=== PATIENT | male | born 1950 | race Caucasian/White ===

== ENCOUNTER 2019-07-07 09:49 | Emergency (ER) | payer OTHER, SELFPAY ==
[2019-07-07 09:53] VITALS: BP 171/94; PULSE 75; RESP 18; TEMP 36.6; O2SAT 96; BMI 28.8
[2019-07-07 10:06] VITALS: RESP 16; O2SAT 97
--- NOTE | 2019-07-07 10:28 | ED_ITS ---
HPI - Back Pain/Injury General: Chief Complaint: Back Pain/Injury Stated Complaint: BACK PAIN Time Seen by Provider: 07/07/19 09:58 Source: patient and family Mode of arrival: ambulatory Limitations: no limitations History of Present Illness: HPI Narrative: Patient is a very nice 68-year-old male who presents to ED today along with his son for complaints of lower back pain. Patient has had multiple surgeries on his back and suffers from fairly chronic back pain. Despite his pain patient does not normally take regular pain medications (apart from a muscle relaxer). Patient continues to be very active along with his son and states approximately 4 to 5 days ago he was doing a lot of outdoor yard work/working on a building and reports the next morning he had trouble getting out of bed due to increased back pain. He was subsequently seen [facility] a few days ago and given two shots that did not seem to help with his discomfort. He has contacted his neurosurgeon who is currently working on getting him an appointment (neurosurgeon is from [place]). Patient reports pain seems to radiate down into his right buttock/hip. He denies saddle anesthesia, urinary retention, or bowel incontinence. MD elicited complaint: back pain Pertinent past history: prior back pain Onset (ago): day(s) Timing: constant Severity: severe Similar Symptoms Previously: Yes Location: lumbar spine and right lower back Radiation: buttocks Exacerbating factors: movement, sitting upright, walking, coughing/sneezing and lifting Relieving factors: none Associated symptoms: Reports no associated symptoms; Deny abdominal pain, chills, dysuria, fever(s), nausea, syncope, urinary urgency or vomiting Review of Systems Const: Denies: fever or chills Card: Denies: chest pain, palpitations, irregular heart rhythm, edema, lightheadedness, syncope or pre-syncope Resp: Denies: shortness of breath, productive cough or chest congestion GI: Denies: abdominal pain, nausea or vomiting : Denies: flank pain, difficulty urinating, painful urination, urinary frequency or urinary urgency Musc: Reports: back pain; Denies: neck pain, extremity swelling, joint swelling, redness, joint warmth, muscle weakness or decrease in muscle mass Skin/Breast: Denies: rash Neuro: Denies: headache, numbness in extremities, weakness in extremities or changes in sensation PFSH ED PFSH: Social History Smoking and tobacco status: never smoked Physical Exam Const: COMMON NORMALS: no apparent distress, average body habitus, oriented x3, no limitations, healthy appearing, alert and well nourished Resp: COMMON NORMALS: normal respiratory effort and clear to auscultation bilaterally AUSCULTATION: clear to auscultation bilaterally Cardio: COMMON NORMALS: regular rate and regular rhythm RATE: regular rate RHYTHM: regular rhythm Back/Pelvis: LUMBAR SPINE/LOWER BACK: Yes straight leg raise negative bilaterally SACROILIAC JOINTS: Yes SI joint(s) abnormal (TTP over R) Extremity: COMMON NORMALS: full ROM Neuro: COMMON NORMALS: oriented x3, moves all extremities, no focal motor deficits and no sensory deficits noted SENSORIUM/ORIENTATION: Yes alert GAIT: Yes normal gait MOTOR EXAM: strength 5/5 throughout Skin: COMMON NORMALS: no rashes or lesions noted GENERAL SKIN EXAM: no rashes or lesions noted Course Vital Signs: Vital signs: Vital Signs Temperature 97.8 F 07/07/19 09:53 Pulse Rate 78 07/07/19 10:54 Respiratory Rate 16 07/07/19 10:54 Blood Pressure 171/94 07/07/19 09:53 Pulse Oximetry 97 07/07/19 10:54 MDM - Back Pain/Injury MDM Narrative: Medical decision making narrative: Patient with no acute neurological defects on his physical examination. I do not feel emergent imaging is indicated as it is unlikely to change my overall management. We will treat patient's acute flare of his pain and recommend he follow-up with PCP/neurosurgeon for further evaluation if pain persists. Discharge Plan Discharge Patient Disposition: Home, Self-Care Clinical Impression: Sacro-iliac pain Condition: Stable Prescriptions: New prednisone 10 mg tablet 10 mg PO DAILY Qty: 21 RF: 0 hydrocodone-acetaminophen 5-325 mg tablet 1 tab PO Q4H PRN (Reason: pain) Qty: 20 RF: 0 diclofenac sodium 50 mg tablet,delayed release (DR/EC) 50 mg PO Q12H PRN (Reason: pain) Qty: 20 RF: 0 Discharge Orders: Discharge Order (Routine); Ordered 07/07/19 Ordered By: Diane Beltrán Referrals: Tr Beal [Primary Care Provider] - Discharge Diet: Usual diet Discharge Activity: Increase activity as tolerated Activity Restrictions/Additional Instructions: As discussed please follow up with primary care or your neurosurgeon for further evaluation. Discharge Date/Time: 07/07/19 10:54 Coding Level of Care Code ED Incident Manager for Sanjeev Maldonado
[2019-07-07 10:37] VITALS: RESP 17; O2SAT 98
[2019-07-07] MEDS: morphine 4 mg/mL SDV 1 mL IM (10:37)
[2019-07-07] MEDS: orphenadrine 30 mg/mL Inj 2 mL 60 MG IM (10:37)
[2019-07-07 10:54] VITALS: PULSE 78; RESP 16; O2SAT 97
== END 2019-07-07 10:54 | disposition home or self-care (01) ==
PROVIDERS: Emergency Provider Physician Assistant; Family Provider Family Medicine; PCP Family Medicine
DX: M53.3 Sacrococcygeal disorders, not elsewhere classified (principal); Z98.890 Other specified postprocedural states
CPT/HCPCS: 96372; 99281; 99283; J2270; J2360

== ENCOUNTER 2020-02-23 14:20 | Outpatient (CLI) | payer OTHER, MEDICARE, SELFPAY ==
--- NOTE | 2020-02-23 15:00 | USCV_ITS ---
Marcos Kwan Age: 69 Gender: M : 1950 Exam Date: 02/23/2020 14:37 Ordering Phys: EMILY Maza APRN Technologist: Abdoul Clancy [place] [facility] [place]IN IN LEG HISTORY: Pain in Leg with swelling PROCEDURES: Venous duplex imaging was performed in only the left lower extremity. The following venous structures were evaluated: common femoral vein, profunda vein, proximal portion of the greater saphenous vein, superficial femoral vein, and the popliteal vein. In addition, the posterior tibial and peroneal trunk were evaluated. Serial compression, augmentation maneuvers, and spectral Doppler flow evaluation were performed. FINDINGS: No DVT seen in any vessel examined CONCLUSIONS Negative left lower extremity venous Doppler ultrasound. Dr. Celeste Joseph MD (Electronically Signed) Final Date: 23 February 2020 15:36 S
== END 2020-02-23 14:21 | disposition home or self-care (01) ==
LOC: RAD 14:29
PROVIDERS: Family Provider Family Medicine; PCP Family Medicine; Visit Provider Nurse Practitioner Family
DX: M79.605 Pain in left leg (principal)
CPT/HCPCS: 73562; 93971

== ENCOUNTER → 2020-04-27 15:12 | Outpatient (BNVA) | payer OTHER, MEDICARE, SELFPAY | PROVIDERS: Family Provider Family Medicine; PCP Family Medicine; Visit Provider Nurse Practitioner Family | DX: Z20.828 Contact with and (suspected) exposure to other viral communicable diseases (principal) | CPT/HCPCS: 87635 ==

== ENCOUNTER → 2020-07-02 12:33 | Outpatient (BNVA) | payer OTHER, MEDICARE, SELFPAY | PROVIDERS: Family Provider Family Medicine; PCP Nurse Practitioner Family; Visit Provider Nurse Practitioner Family | DX: S61.411A Laceration without foreign body of right hand, initial encounter (principal); X58.XXXA Exposure to other specified factors, initial encounter | CPT/HCPCS: 73130 ==

== ENCOUNTER → 2021-03-18 10:19 | Outpatient (BNVA) | payer MEDICARE, OTHER, SELFPAY | PROVIDERS: Family Provider Family Medicine; PCP Nurse Practitioner Family; Visit Provider Family Medicine | DX: S69.92XA Unspecified injury of left wrist, hand and finger(s), initial encounter (principal); X58.XXXA Exposure to other specified factors, initial encounter | CPT/HCPCS: 73120 ==

== ENCOUNTER 2021-03-29 15:47 | Emergency (ER) | payer MEDICARE, BC, OTHER, SELFPAY ==
[2021-03-29 16:54] VITALS: BP 169/64; PULSE 81; RESP 18; TEMP 36.7; O2SAT 92; BMI 29.5
--- NOTE | 2021-03-29 17:16 | W.ED.GENADLT ---
HPI - General Adult General: Chief complaint: Extremity Injury, Lower Stated complaint: FALL FROM HORSE/HORSE ROLLED ON PT Time Seen by Provider: 03/29/21 17:06 History of Present Illness: HPI narrative: Patient is a 70-year-old male with history of hypertension, lipidemia, atrial fibrillation on Eliquis presented to the emergency room after falling off a brandon while riding a horse. Patient complains of right ankle pain, right flank pain. Patient denies LOC, or head injuries. Patient says that he is not ambulatory and has not been able to bear weight on the right ankle. EMS was alerted patient was brought in for evaluation. Patient has bruises over the right leg. Onset:1 hr ago Duration:1 hr Location:home Severity:moderate Review of Systems Narrative: Constitutional: No fever, no chills. HEENT: No vision changes CV: No chest pain, no palpitations PULM: no cough, no dyspnea. GI: No abdominal pain, no N/V/D. +R flank pain : No dysuria MSKEL: No muscle pain SKIN: No new rashes, no lesions. NEURO: No headache, no focal weakness. HEME: No visible bruises PSYCH: Normal mood PFSH ED PFSH: Medical History Acute bacterial sinusitis Arthritis CAD (coronary artery disease) DVT (deep venous thrombosis) Encounter for medication management Environmental and seasonal allergies Fatigue Hyperlipidemia Lower respiratory tract infection Prostate cancer screening Vitamin D deficiency Surgical History History of back surgery S/P appendectomy Status post arterial stent Status post right hip replacement Family History Other CAD (coronary artery disease) Hypertension Social History Smoking and tobacco status: never smoked Alcohol intake: current Alcohol intake frequency: few times a week Physical Exam Narrative: EXAM NARRATIVE: Head: Atraumatic Eyes: PERRL, conjunctiva without injection ENT: Mucous membrane moist NECK: Supple, ROM intact LUNGS: LCTAB, no crackles/rhonchi CV: RRR ABDOMEN: Soft, +R flank TTP. NO guarding rebound, guarding, rigidity. No CVA tenderness to percussion. Neg Cortés/Neg McBurney's point tenderness, no suprabupic tenderness to palpation. EXTREMITY: Normal ROM, +R ankle swelling and tenderness to palpation, +R tib/fib proximal, Rfoot tenderness to palpation, 2+ DP/PT pulses R, cap refill < 2 seconds SKIN: No rash or erythema NEURO: Awake and alert, no focal motor deficits PSYCH: Normal mood and affect Course Vital Signs: Vital signs: Vital Signs Temperature 98.2 F 03/29/21 18:39 Pulse Rate 74 03/29/21 20:43 Respiratory Rate 18 03/29/21 20:43 Blood Pressure 143/82 03/29/21 18:39 Pulse Oximetry 98 03/29/21 20:43 MDM - General Adult MDM Narrative: Medical decision making narrative: 70-year-old male with history of anticoagulation use presenting to the emergency room after an episode of fall. Patient complains of right ankle, right lateral flank pain. On exam, patient is hemodynamically stable. Primary survey is negative for any focal findings. Pelvis stable. Secondary survey significant for bruises over the right lower extremity and right ankle swelling. Neurovascular exam of the right lower extremity intact. E-Fast is negative today. Work-up including x-rays and CT scans. Intervention: morphine, TDAP Patient studies are negative today. Patient is no longer complaining of flank pain after morphine. Ankle x-ray is negative. Patient still has tenderness and swelling of the right ankle. Patient was placed in a short leg splint. Patient was given crutches. Patient is instructed follow-up repeat x-ray in 1 week. At the present time, because patient is on blood thinner, I cannot rule out the possibility of hollow viscus injury. However because patient does not have any flank pain anymore, performed a shared decision-making with patient who elects to go home at this time. Given patient strict return precautions for any signs of any flank pain, fever/chills, lightheadedness, or any new concerning complaints. Patient verbalized understanding of all the risk of leaving today including possible hemoperitenum and at this time. Jack within normal limit. UA is negative for gross hematuria. No suspicion for acute renal injury. Patient is also worried that he needs to get a repeat x-ray in 1 week to evaluate for possible occult fracture of right ankle. Patient is given crutches and short leg splint today. Rx perocet PRN pain Disposition: Discharge. Patient counseled regarding diagnostic impression, treatment plan. Patient given ED strict return precautions to return for continuation, worsening, or development of new symptoms. Instructed to f/u w/ PCP regarding symptoms today. Patient verbalized understanding. Lab Data: Labs: Lab Results 03/29/21 03/29/21 03/29/21 17:40 17:40 18:45 WBC 12.9 10^3/uL H 10 ^3/uL (4.0-10.0) RBC 4.98 10^6/uL 10^6 /uL (4.1-5.3) Hgb 15.3 g/dL g/dL (11.7-16.6) Hct 44.4 % % (42.0-52.0) MCV 89.2 fl fl (80-94) MCH 30.7 pg pg (28.0-34.0) MCHC 34.5 g/dL g/dL (30.0-36.0) RDW 12.6 % % (12.1-15.1) Plt Count 181 10^3/cmm 10^3 /cmm (130-400) MPV 8.9 fL fL (7.4-10.4) Neut % (Auto) 76.1 % % Lymph % (Auto) 13.3 % % Sutton % (Auto) 9.9 % % Eos % (Auto) 0.2 % % Baso % (Auto) 0.2 % % Neut # (Auto) 9.77 10^3/uL H 10 ^3/uL (1.8-7.7) Lymph # (Auto) 1.7 10^3/uL 10^3/ uL (0.8-4.8) Sutton # (Auto) 1.3 10^3/uL H 10^ 3/uL (0.2-0.9) Eos # (Auto) 0.0 10^3/uL 10^3/ uL (0.0-0.8) Baso # (Auto) 0.0 10^3/uL 10^3/ uL (0.0-0.1) Nucleated RBC % (a uto) 0 % % Nucleated RBCs # 0.0 /100WBC /100W BC Sodium 138 mmol/L mmol/L (136-145) Potassium 4.0 mmol/L mmol/L (3.5-5.1) Chloride 102 mmol/L mmol/L (98-107) Carbon Dioxide 27 mmol/L mmol/L (22-29) Anion Gap 13.0 (5-19) BUN 16 mg/dL mg/dL (8-23) Creatinine 0.7 mg/dL mg/dL (0.7-1.2) GFR Calculation Not Reportable Glucose 113 mg/dL mg/dL (65-115) Calculated Osmolal ity 288 mOsm/kg mOsm/ kg (285-295) Calcium 9.1 mg/dL mg/dL (8.5-10.5) Total Bilirubin 0.4 mg/dL mg/dL (0.15-1.2) AST 25 U/L U/L (0-40) ALT 21 U/L U/L (0-41) Alkaline Phosphata se 58 IU/L IU/L (40-130) Total Protein 7.2 g/dL g/dL (6.6-8.7) Albumin 4.3 g/dL g/dL (3.5-5.2) Globulin 2.9 g/dL g/dL (1.3-4.6) Lipase 19 U/L U/L (13-60) Urine Color Yellow (Yellow) Urine Appearance Clear (CLEAR) Urine pH 7 (5-7) Ur Specific Gravit y 1.015 (1.005-1.030) Urine Protein Neg (Negative) Urine Glucose (UA) Norm (Normal) Urine Ketones Negative (Negative) Urine Blood Trace H (Negative) Urine Nitrate Negative (Negative) Urine Bilirubin Neg (Negative) Urine Urobilinogen Norm mg/dL mg/dL (Negative) Ur Leukocyte Yany ase Negative (Negative) Urine RBC 15-25 /hpf H /hpf (0-2) Urine WBC 0-4 /hpf H /hpf (0-5) Ur Squamous Epith Cells 0-4 /hpf H /hpf (0-5) Amorphous Sediment Not Reportable Urine Bacteria Trace /hpf /hpf (NONE) Imaging Data^: Other Imaging: Radiologist's impression: [address] [address]BHaj ReportSigned Patient: Marcos Kwanmynor #: [id number]: 1950Acct#:[id number]/Sex: MADM Date: 03/29/21Loc: ERRoom/Bed:Attending Dr: Ordering Provider/Ordering MD: Arias Weems MD Date of Service: 03/29/21 Procedure(s): XR pelvis 1-2V* 83670 Accession Number(s): [id number] Report Number: [id number] PROCEDURE INFORMATION: Exam: XR Pelvis Exam date and time: 03/29/2021 5:25 PM Age: 70 years old Clinical indication: Injury or trauma; Blunt trauma (contusions or hematomas); Right; Pelvic region; Injury details: Horse fell on PT. Pain in RT leg and RT side of chest/abd; Prior surgery; Surgery type: Appy, back, hernia TECHNIQUE: Imaging protocol: XR pelvis. Views: 1 or 2 view. COMPARISON: No relevant prior studies available. FINDINGS: Bones/joints: Intact well aligned left hip prosthesis. No pelvic or hip fracture. Moderate lower lumbar degenerative disease. Soft tissues: Visible soft tissues are unremarkable. XR/XR pelvis 1-2V* 71283 IMPRESSION: No acute fracture. Radiation Dose CTDIVOL = (mGy): DLP = (mGy-cm) Dictated By:Galo Montero MDSigned By:Galo Montero MDSigned Date/Time:03/29/21 1824DD/ [address] [address]JNyh ReportSigned Patient: Marcos Kwan #: [id number]: 1950Acct#:[id number]/Sex: MADM Date: 03/29/21Loc: ERRoom/Bed:Attending Dr: Ordering Provider/Ordering MD: Arias Weems MD Date of Service: 03/29/21 Procedure(s): XR chest 1V portable 05724 Accession Number(s): [id number] Report Number: [id number] PROCEDURE INFORMATION: Exam: XR Chest Exam date and time: 03/29/2021 5:25 PM Age: 70 years old Clinical indication: Injury or trauma; Other: Horse fell on him; Blunt trauma (contusions or hematomas); Injury details: Horse fell on PT. Pain in RT leg and RT side of chest/abd; Prior surgery; Surgery type: Appy, back, RT hip TECHNIQUE: Imaging protocol: XR of the chest. Views: 1 view. COMPARISON: CR Chest 1 [place] [id number] 06/20/2016 2:21 PM FINDINGS: Lungs: Lungs are clear. Pleural spaces: There is no pleural effusion or pneumothorax. Heart/Mediastinum: Cardiomediastinal contours are unremarkable. Bones/joints: Bones are unremarkable. XR/XR chest 1V portable [id number] IMPRESSION: No acute findings. Radiation Dose CTDIVOL = (mGy): DLP = (mGy-cm) Dictated By:Galo Montero MDSigned By:Galo Montero MDSigned Date/Time:03/29/21 1823DD/ [address] [address]NZzd ReportSigned Patient: Marcos Kwan #: [id number]: 1950Acct#:[id number]/Sex: 70 / MADM Date: 03/29/21Loc: ERRoom/Bed:Attending Dr: Ordering Provider/Ordering MD: Arias Weems MD Date of Service: 03/29/21 Procedure(s): XR tibia fibula RT 2V 56478 Accession Number(s): [id number] Report Number: [id number] PROCEDURE INFORMATION: Exam: XR Right Tibia and Fibula Exam date and time: 03/29/2021 5:19 PM Age: 70 years old Clinical indication: Injury or trauma; Blunt trauma; Lower leg; Right; Injury details: Horse fell on PT. Pain in RT leg; Additional info: Tib/fib pain TECHNIQUE: Imaging protocol: XR Right tibia and fibula. Views: 2 views. COMPARISON: No relevant prior studies available. FINDINGS: Bones/joints: There is smooth periosteal reaction in the mid fibular shaft suggesting healed fracture. Alignment of the knee and ankle are normal. There is no acute fracture. Soft tissues: Visible soft tissues are unremarkable. XR/XR tibia fibula RT 2V 95171 IMPRESSION: No acute fracture. Radiation Dose CTDIVOL = (mGy): DLP = (mGy-cm) Dictated By:Galo Montero MDSigned By:Galo Montero MDSigned Date/Time:03/29/21/ [address] [address]IPwh ReportSigned Patient: Marcos Kwan #: [id number]: 1950Acct#:[id number]/Sex: MADM Date: 03/29/21Loc: ERRoom/Bed:Attending Dr: Ordering Provider/Ordering MD: Arias Weems MD Date of Service: 03/29/21 Procedure(s): XR knee LT 1-2V 90231 Accession Number(s): [id number] Report Number: [id number] PROCEDURE INFORMATION: Exam: XR Left Knee Exam date and time: 03/29/2021 5:19 PM Age: 70 years old Clinical indication: Injury or trauma; Other: Horse fell on PT; Blunt trauma; Knee; Left TECHNIQUE: Imaging protocol: XR Left knee. Views: 1 or 2 views. COMPARISON: No relevant prior studies available. FINDINGS: Bones/joints: Normal. Soft tissues: Normal. XR/XR knee LT 1-2V 20519 IMPRESSION: No acute findings. Radiation Dose CTDIVOL = (mGy): DLP = (mGy-cm) Dictated By:Galo Montero MDSigned By:Galo Montero MDSigned Date/Time:03/29/21/ [address] [address]ZX Scan ReportSigned Patient: Marcos Kwan #: [id number]: 1950Acct#:[id number]/Sex: MADM Date: 03/29/21Loc: ERRoom/Bed:Attending Dr: Ordering Provider/Ordering MD: Arias Weems MD Date of Service: 03/29/21 Procedure(s): CT head wo con* 48264 Accession Number(s): [id number] Report Number: [id number] PROCEDURE INFORMATION: Exam: CT Head Without Contrast Exam date and time: 03/29/2021 5:19 PM Age: 70 years old Clinical indication: Injury or trauma; Blunt trauma (contusions or hematomas); Injury details: Horse fell on PT. Landed on RT side; Additional info: Fall TECHNIQUE: Imaging protocol: Computed tomography of the head without contrast. Radiation optimization: All CT scans at this facility use at least one of these dose optimization techniques: automated exposure control; mA and/or kV adjustment per patient size (includes targeted exams where dose is matched to clinical indication); or iterative reconstruction. COMPARISON: No relevant prior studies available. RADIATION DOSE METRICS: Total DLP (mGy-cm): 805.09 FINDINGS: Brain: There is hypoattenuation in the periventricular and subcortical white matter consistent with chronic microvascular disease. There is no acute intracranial hemorrhage. Cerebral ventricles: There is no significant ventricular dilation. The basal cisterns are unremarkable. Paranasal sinuses: The paranasal sinuses are clear. Mastoid air cells: The mastoid air cells are clear. Bones/joints: The calvarium is intact. Soft tissues: The visible extracranial soft tissues are unremarkable. CT/CT head wo con* 64498 IMPRESSION: No acute intracranial abnormality. Radiation Dose CTDIVOL = (mGy): DLP = 805.09 (mGy-cm) Dictated By:Galo Montero MDSigned By:Galo Montero MDSigned Date/Time:03/29/21 1803DD/ [address] [address]AUmg ReportSigned Patient: Marcos Kwan #: [id number]: 1950Acct#:[id number]/Sex: 70 / MADM Date: 03/29/21Loc: ERRoom/Bed:Attending Dr: Ordering Provider/Ordering MD: Arias Weems MD Date of Service: 03/29/21 Procedure(s): XR foot RT 2V 75972 Accession Number(s): [id number] Report Number: [id number] PROCEDURE INFORMATION: Exam: XR Right Foot Exam date and time: 03/29/2021 5:19 PM Age: 70 years old Clinical indication: Injury or trauma; Blunt trauma; Foot; Right; Injury details: Horse fell on PT. PT landed on RT side. Pain in RT leg; Additional info: Foot pain TECHNIQUE: Imaging protocol: XR Right foot. Views: 1 or 2 views. COMPARISON: CR (LOW EXM, ) 03/29/2021 5:29 PM FINDINGS: Bones/joints: There is a healed fracture of the distal 5th metatarsal. Alignment is normal. There is no acute fracture. There is vascular calcification in the lower leg and foot. Soft tissues: Visible soft tissues are unremarkable. XR/XR foot RT 2V 59269 IMPRESSION: No acute fracture. Radiation Dose CTDIVOL = (mGy): DLP = (mGy-cm) Dictated By:Galo Montero MDSigned By:Galo Montero MDSigned Date/Time:03/29/21 1826DD/ 1719 Marcos Kwan Mike 70 M [address] [address]HX Scan ReportSigned Patient: Marcos Kwan [facility] #: [id number]: 1950Acct#:[id number]/Sex: 70 / MADM Date: 03/29/21Loc: ERRoom/Bed:Attending Dr: Ordering Provider/Ordering MD: Arias Weems MD Date of Service: 03/29/21 Procedure(s): CT angio chest abdomen pelvis Accession Number(s): [id number] Report Number: [id number] PROCEDURE INFORMATION: Exam: CTA Chest Without And With Contrast Exam date and time: 03/29/2021 5:19 PM Age: 70 years old Clinical indication: Injury or trauma; Blunt trauma (contusions or hematomas); Lower abdominal or back area; Right; Injury details: Horse fell on PT. PT landed on RT side. Pain in RT side abd and chest; Prior surgery; Surgery type: Back, RT hip, appy TECHNIQUE: Imaging protocol: Computed tomographic angiography of the chest without and with contrast. 3D rendering (Not supervised by radiologist): MIP and/or 3D reconstructed images were created by the technologist. Radiation optimization: All CT scans at this facility use at least one of these dose optimization techniques: automated exposure control; mA and/or kV adjustment per patient size (includes targeted exams where dose is matched to clinical indication); or iterative reconstruction. Contrast material: VISI 320; Contrast volume: 95 ml; Contrast route: INTRAVENOUS (IV); COMPARISON: CR (CHEST, ) 03/29/2021 5:41 PM RADIATION DOSE METRICS: Total DLP (mGy-cm): 2053.35 FINDINGS: Pulmonary arteries: Pulmonary arteries are adequately opacified for evaluation through the segmental level. Subsegmental vessels are obscured. There is no filling defect to suggest embolism. Aorta: There is mild aortic atherosclerotic disease. There is no aortic dissection or aneurysm. Lungs: There are scattered calcified pulmonary granulomas bilaterally. There is no consolidation. Pleural spaces: There is no pleural effusion or pneumothorax. Heart: Heart size is normal. There is moderate coronary artery calcification. There is no pericardial effusion. Lymph nodes: There is no mediastinal or hilar lymphadenopathy. Bones/joints: The visible portions of the clavicles and shoulders, scapula, ribs, sternum, and spine are unremarkable. Soft tissues: The extrathoracic soft tissues are unremarkable. IMPRESSION: 1. No sign of significant traumatic injury in the thorax. 2. No pulmonary embolism. PROCEDURE INFORMATION: Exam: CTA Abdomen and Pelvis With Contrast Exam date and time: 03/29/2021 5:19 PM Age: 70 years old Clinical indication: Injury or trauma; Blunt trauma (contusions or hematomas); Lower abdominal or back area; Right; Injury details: Horse fell on PT. PT landed on RT side. Pain in RT side abd and chest; Prior surgery; Surgery type: Back, RT hip, appy TECHNIQUE: Imaging protocol: Computed tomographic angiography of the abdomen and pelvis with contrast material. 3D rendering (Not supervised by radiologist): MIP and/or 3D reconstructed images were created by the technologist. Radiation optimization: All CT scans at this facility use at least one of these dose optimization techniques: automated exposure control; mA and/or kV adjustment per patient size (includes targeted exams where dose is matched to clinical indication); or iterative reconstruction. Contrast material: VISI 320; Contrast volume: 95 ml; Contrast route: INTRAVENOUS (IV); COMPARISON: CR (CHEST, ) 03/29/2021 5:41 PM RADIATION DOSE METRICS: Total DLP (mGy-cm): 2054.35 FINDINGS: Aorta: There is mild aortic atherosclerotic disease. Celiac trunk and mesenteric arteries: There is marked atherosclerotic calcification at the origin of the superior mesenteric artery with at least 70% stenosis. There is less than 50% stenosis of the celiac artery origin. Renal arteries: There is mild atherosclerotic calcification at the renal artery origins with less than 50% stenosis bilaterally. Right iliac arteries: No occlusion or significant stenosis. Left iliac arteries: No occlusion or significant stenosis. Liver: The liver is normal. Gallbladder and bile ducts: The gallbladder is normal. There is no biliary dilation. Pancreas: The pancreas is unremarkable. Spleen: The spleen is unremarkable. Adrenal glands: The adrenal glands are unremarkable. Kidneys and ureters: Nonobstructive stones are seen in both kidneys. There are simple cysts in the left kidney. There is no hydronephrosis or ureteral dilation. Stomach and bowel: The stomach is decompressed, preventing meaningful evaluation of wall thickness. The small bowel is nondilated. The colon is unremarkable. Appendix: Not visible. Intraperitoneal space: There is no free air or significant intraperitoneal free fluid. Lymph nodes: There is no lymphadenopathy in the retroperitoneum, mesentery, pelvis or inguinal regions. Urinary bladder: The urinary bladder is unremarkable. Reproductive: There is nonspecific mild enlargement of the prostate gland. Bones/joints: There is moderate degenerative disease in the lumbar spine. No acute fracture. The right hip prosthesis is intact and well aligned. The pelvis and proximal femora are intact. Soft tissues: The abdominal wall is intact. CT/CT angio chest abdomen pelvis IMPRESSION: 1. No sign of significant traumatic injury in the abdomen or pelvis. 2. 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 Radiation Dose CTDIVOL = (mGy): DLP = 2054.35~2054.35 (mGy-cm) Dictated By:Galo Montero MDSigned By:Galo Monteroigned Date/Time:03/29/21 1822DD/ 1719 [facility] [place], [place] [address]BP Scan ReportSigned Patient: Marcos Kwan #: [id number]: 1950Acct#:[id number]/Sex: 70 / MADM Date: 03/29/21Loc: ERRoom/Bed:Attending Dr: Ordering Provider/Ordering MD: Arias Weems MD Date of Service: 03/29/21 Procedure(s): CT cervical spin wo con* 53556 Accession Number(s): [id number] Report Number: [id number] PROCEDURE INFORMATION: Exam: CT Cervical Spine Without Contrast Exam date and time: 03/29/2021 5:19 PM Age: 70 years old Clinical indication: Injury or trauma; Blunt trauma; Injury details: Horse fell on PT. PT landed on RT side. ; Additional info: Fall TECHNIQUE: Imaging protocol: Computed tomography images of the cervical spine without contrast. Radiation optimization: All CT scans at this facility use at least one of these dose optimization techniques: automated exposure control; mA and/or kV adjustment per patient size (includes targeted exams where dose is matched to clinical indication); or iterative reconstruction. COMPARISON: CT head wo con* [id number] 03/29/2021 5:43 PM RADIATION DOSE METRICS: Total DLP (mGy-cm): 665.67 FINDINGS: Bones/joints: Spinal alignment is normal. Vertebral body height is maintained. There is mild multilevel facet spondylosis. No acute fracture. Discs/Spinal canal/Neural foramina: There is moderate degenerative disc disease at C5-C6. There is no spinal canal stenosis. Lungs: Lung apices are not imaged. Vasculature: There is mild atherosclerotic disease of the carotid arteries bilaterally. Soft tissues: Soft tissues in the neck and thoracic inlet are unremarkable. CT/CT cervical spin wo con* [id number] IMPRESSION: No acute fracture. Radiation Dose CTDIVOL = (mGy): DLP = 665.67 (mGy-cm) Dictated By:Galo Montero MDSigned By:Galo Montero MDSigned Date/Time:03/29/21 1759DD/ 18 Marcos Kwan 70 M [address] [address]BZuc ReportSigned Patient: Marcos Kwan #: [id number]: 1950Acct#:[id number]/Sex: 70 / MADM Date: 03/29/21Loc: ERRoom/Bed:Attending Dr: Ordering Provider/Ordering MD: Arias Weems MD Date of Service: 03/29/21 Procedure(s): XR ankle RT min 3V* 32154 Accession Number(s): [id number] Report Number: [id number] PROCEDURE INFORMATION: Exam: XR Right Ankle Exam date and time: 03/29/2021 5:19 PM Age: 70 years old Clinical indication: Injury or trauma; Blunt trauma; Ankle; Right; Injury details: Horse fell on PT. PT landed on RT side. Pain in RT leg. ; Additional info: Ankle pain TECHNIQUE: Imaging protocol: XR Right ankle. Views: 3 or more views. COMPARISON: CR (LOW EXM, ) 03/29/2021 5:27 PM FINDINGS: Bones/joints: Normal. Soft tissues: Normal. XR/XR ankle RT min 3V* [id number] IMPRESSION: No acute findings. Radiation Dose CTDIVOL = (mGy): DLP = (mGy-cm) Dictated By:Galo Montero MDSigned By:Galo Montero MDSigned Date/Time:03/29/21/ 18 Discharge Plan Discharge Patient Disposition: Home Clinical Impression: Fall, Bruise, Ankle pain Condition: Stable Prescriptions: New Percocet 5-325 mg tablet 1 tab PO Q8H PRN (Reason: pain) 3 Days Qty: 9 RF: 0 No Action fluticasone propionate [Flonase Allergy Relief] 50 mcg/actuation spray,suspension 1 spray intranasal DAILY 30 Days Qty: 15.8 RF: 2 doxycycline hyclate 100 mg capsule 100 mg PO BID 7 Days Qty: 14 RF: 0 tramadol 50 mg tablet 50 mg PO BID PRN (Reason: pain) 7 Days Qty: 14 RF: 0 glucosamine-chondroitin [Osteo Bi-Flex] 250-200 mg tablet 2 tab PO DAILY RF: 0 tamsulosin 0.4 mg capsule 0.4 mg PO DAILY RF: 0 amlodipine 5 mg tablet 5 mg PO DAILY RF: 0 apixaban 2.5 mg tablet 2.5 mg PO BID RF: 0 atorvastatin 20 mg tablet 20 mg PO DAILY RF: 0 Allergy Relief (cetirizine) 10 mg capsule 10 mg PO DAILY 30 Days Qty: 30 RF: 2 Discharge Orders: Discharge ED (Routine); Ordered 03/29/21 Ordered By: Arias Weems Referrals: EMILY Maza, GRUBBER [Primary Care Provider] - Discharge Diet: Advance as tolerated Discharge Activity: Resume usual activity Patient Instructions: Concussion (ED), Swollen Joint (ED), Opioid Safety Activity Restrictions/Additional Instructions: Please use crutches as needed. He needs a repeat x-ray in 1 week to make sure that you do not have any ankle fracture. Come back to the emergency if you have any worsening pain, any flank pain, difficulty breathing, shortness of breath, or any new or concerning complaints Use pain medicine as needed for your pain. 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
--- NOTE | 2021-03-29 17:19 | XRR_ITS ---
PROCEDURE INFORMATION: Exam: XR Right Tibia and Fibula Exam date and time: 03/29/2021 5:19 PM Age: 70 years old Clinical indication: Injury or trauma; Blunt trauma; Lower leg; Right; Injury details: Horse fell on PT. Pain in RT leg; Additional info: Tib/fib pain TECHNIQUE: Imaging protocol: XR Right tibia and fibula. Views: 2 views. COMPARISON: No relevant prior studies available. FINDINGS: Bones/joints: There is smooth periosteal reaction in the mid fibular shaft suggesting healed fracture. Alignment of the knee and ankle are normal. There is no acute fracture. Soft tissues: Visible soft tissues are unremarkable. XR/XR tibia fibula RT 2V [id number] IMPRESSION: No acute fracture. Radiation Dose CTDIVOL = (mGy): DLP = (mGy-cm)
--- NOTE | 2021-03-29 17:19 | XRR_ITS ---
PROCEDURE INFORMATION: Exam: XR Right Foot Exam date and time: 03/29/2021 5:19 PM Age: 70 years old Clinical indication: Injury or trauma; Blunt trauma; Foot; Right; Injury details: Horse fell on PT. PT landed on RT side. Pain in RT leg; Additional info: Foot pain TECHNIQUE: Imaging protocol: XR Right foot. Views: 1 or 2 views. COMPARISON: CR (LOW EXM, ) 03/29/2021 5:29 PM FINDINGS: Bones/joints: There is a healed fracture of the distal 5th metatarsal. Alignment is normal. There is no acute fracture. There is vascular calcification in the lower leg and foot. Soft tissues: Visible soft tissues are unremarkable. XR/XR foot RT 2V [id number] IMPRESSION: No acute fracture. Radiation Dose CTDIVOL = (mGy): DLP = (mGy-cm)
--- NOTE | 2021-03-29 17:19 | CTR_ITS ---
PROCEDURE INFORMATION: Exam: CTA Chest Without And With Contrast Exam date and time: 03/29/2021 5:19 PM Age: 70 years old Clinical indication: Injury or trauma; Blunt trauma (contusions or hematomas); Lower abdominal or back area; Right; Injury details: Horse fell on PT. PT landed on RT side. Pain in RT side abd and chest; Prior surgery; Surgery type: Back, RT hip, appy TECHNIQUE: Imaging protocol: Computed tomographic angiography of the chest without and with contrast. 3D rendering (Not supervised by radiologist): MIP and/or 3D reconstructed images were created by the technologist. Radiation optimization: All CT scans at this facility use at least one of these dose optimization techniques: automated exposure control; mA and/or kV adjustment per patient size (includes targeted exams where dose is matched to clinical indication); or iterative reconstruction. Contrast material: VISI 320; Contrast volume: 95 ml; Contrast route: INTRAVENOUS (IV); COMPARISON: CR (CHEST, ) 03/29/2021 5:41 PM RADIATION DOSE METRICS: Total DLP (mGy-cm): 2053.35 FINDINGS: Pulmonary arteries: Pulmonary arteries are adequately opacified for evaluation through the segmental level. Subsegmental vessels are obscured. There is no filling defect to suggest embolism. Aorta: There is mild aortic atherosclerotic disease. There is no aortic dissection or aneurysm. Lungs: There are scattered calcified pulmonary granulomas bilaterally. There is no consolidation. Pleural spaces: There is no pleural effusion or pneumothorax. Heart: Heart size is normal. There is moderate coronary artery calcification. There is no pericardial effusion. Lymph nodes: There is no mediastinal or hilar lymphadenopathy. Bones/joints: The visible portions of the clavicles and shoulders, scapula, ribs, sternum, and spine are unremarkable. Soft tissues: The extrathoracic soft tissues are unremarkable. IMPRESSION: 1. No sign of significant traumatic injury in the thorax. 2. No pulmonary embolism. PROCEDURE INFORMATION: Exam: CTA Abdomen and Pelvis With Contrast Exam date and time: 03/29/2021 5:19 PM Age: 70 years old Clinical indication: Injury or trauma; Blunt trauma (contusions or hematomas); Lower abdominal or back area; Right; Injury details: Horse fell on PT. PT landed on RT side. Pain in RT side abd and chest; Prior surgery; Surgery type: Back, RT hip, appy TECHNIQUE: Imaging protocol: Computed tomographic angiography of the abdomen and pelvis with contrast material. 3D rendering (Not supervised by radiologist): MIP and/or 3D reconstructed images were created by the technologist. Radiation optimization: All CT scans at this facility use at least one of these dose optimization techniques: automated exposure control; mA and/or kV adjustment per patient size (includes targeted exams where dose is matched to clinical indication); or iterative reconstruction. Contrast material: VISI 320; Contrast volume: 95 ml; Contrast route: INTRAVENOUS (IV); COMPARISON: CR (CHEST, ) 03/29/2021 5:41 PM RADIATION DOSE METRICS: Total DLP (mGy-cm): 2053.35 FINDINGS: Aorta: There is mild aortic atherosclerotic disease. Celiac trunk and mesenteric arteries: There is marked atherosclerotic calcification at the origin of the superior mesenteric artery with at least 70% stenosis. There is less than 50% stenosis of the celiac artery origin. Renal arteries: There is mild atherosclerotic calcification at the renal artery origins with less than 50% stenosis bilaterally. Right iliac arteries: No occlusion or significant stenosis. Left iliac arteries: No occlusion or significant stenosis. Liver: The liver is normal. Gallbladder and bile ducts: The gallbladder is normal. There is no biliary dilation. Pancreas: The pancreas is unremarkable. Spleen: The spleen is unremarkable. Adrenal glands: The adrenal glands are unremarkable. Kidneys and ureters: Nonobstructive stones are seen in both kidneys. There are simple cysts in the left kidney. There is no hydronephrosis or ureteral dilation. Stomach and bowel: The stomach is decompressed, preventing meaningful evaluation of wall thickness. The small bowel is nondilated. The colon is unremarkable. Appendix: Not visible. Intraperitoneal space: There is no free air or significant intraperitoneal free fluid. Lymph nodes: There is no lymphadenopathy in the retroperitoneum, mesentery, pelvis or inguinal regions. Urinary bladder: The urinary bladder is unremarkable. Reproductive: There is nonspecific mild enlargement of the prostate gland. Bones/joints: There is moderate degenerative disease in the lumbar spine. No acute fracture. The right hip prosthesis is intact and well aligned. The pelvis and proximal femora are intact. Soft tissues: The abdominal wall is intact. CT/CT angio chest abdomen pelvis IMPRESSION: 1. No sign of significant traumatic injury in the abdomen or pelvis. 2. 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 Radiation Dose CTDIVOL = (mGy): DLP = 2054.35~2054.35 (mGy-cm)
--- NOTE | 2021-03-29 17:19 | XRR_ITS ---
PROCEDURE INFORMATION: Exam: XR Left Knee Exam date and time: 03/29/2021 5:19 PM Age: 70 years old Clinical indication: Injury or trauma; Other: Horse fell on PT; Blunt trauma; Knee; Left TECHNIQUE: Imaging protocol: XR Left knee. Views: 1 or 2 views. COMPARISON: No relevant prior studies available. FINDINGS: Bones/joints: Normal. Soft tissues: Normal. XR/XR knee LT 1-2V [id number] IMPRESSION: No acute findings. Radiation Dose CTDIVOL = (mGy): DLP = (mGy-cm)
--- NOTE | 2021-03-29 17:19 | CTR_ITS ---
PROCEDURE INFORMATION: Exam: CT Head Without Contrast Exam date and time: 03/29/2021 5:19 PM Age: 70 years old Clinical indication: Injury or trauma; Blunt trauma (contusions or hematomas); Injury details: Horse fell on PT. Landed on RT side; Additional info: Fall TECHNIQUE: Imaging protocol: Computed tomography of the head without contrast. Radiation optimization: All CT scans at this facility use at least one of these dose optimization techniques: automated exposure control; mA and/or kV adjustment per patient size (includes targeted exams where dose is matched to clinical indication); or iterative reconstruction. COMPARISON: No relevant prior studies available. RADIATION DOSE METRICS: Total DLP (mGy-cm): 805.09 FINDINGS: Brain: There is hypoattenuation in the periventricular and subcortical white matter consistent with chronic microvascular disease. There is no acute intracranial hemorrhage. Cerebral ventricles: There is no significant ventricular dilation. The basal cisterns are unremarkable. Paranasal sinuses: The paranasal sinuses are clear. Mastoid air cells: The mastoid air cells are clear. Bones/joints: The calvarium is intact. Soft tissues: The visible extracranial soft tissues are unremarkable. CT/CT head wo con* [id number] IMPRESSION: No acute intracranial abnormality. Radiation Dose CTDIVOL = (mGy): DLP = 805.09 (mGy-cm)
--- NOTE | 2021-03-29 17:19 | CTR_ITS ---
PROCEDURE INFORMATION: Exam: CT Cervical Spine Without Contrast Exam date and time: 03/29/2021 5:19 PM Age: 70 years old Clinical indication: Injury or trauma; Blunt trauma; Injury details: Horse fell on PT. PT landed on RT side. ; Additional info: Fall TECHNIQUE: Imaging protocol: Computed tomography images of the cervical spine without contrast. Radiation optimization: All CT scans at this facility use at least one of these dose optimization techniques: automated exposure control; mA and/or kV adjustment per patient size (includes targeted exams where dose is matched to clinical indication); or iterative reconstruction. COMPARISON: CT head wo con* [id number] 03/29/2021 5:43 PM RADIATION DOSE METRICS: Total DLP (mGy-cm): 665.67 FINDINGS: Bones/joints: Spinal alignment is normal. Vertebral body height is maintained. There is mild multilevel facet spondylosis. No acute fracture. Discs/Spinal canal/Neural foramina: There is moderate degenerative disc disease at C5-C6. There is no spinal canal stenosis. Lungs: Lung apices are not imaged. Vasculature: There is mild atherosclerotic disease of the carotid arteries bilaterally. Soft tissues: Soft tissues in the neck and thoracic inlet are unremarkable. CT/CT cervical spin wo con* [id number] IMPRESSION: No acute fracture. Radiation Dose CTDIVOL = (mGy): DLP = 665.67 (mGy-cm)
--- NOTE | 2021-03-29 17:19 | XRR_ITS ---
PROCEDURE INFORMATION: Exam: XR Right Ankle Exam date and time: 03/29/2021 5:19 PM Age: 70 years old Clinical indication: Injury or trauma; Blunt trauma; Ankle; Right; Injury details: Horse fell on PT. PT landed on RT side. Pain in RT leg. ; Additional info: Ankle pain TECHNIQUE: Imaging protocol: XR Right ankle. Views: 3 or more views. COMPARISON: CR (LOW EXM, ) 03/29/2021 5:27 PM FINDINGS: Bones/joints: Normal. Soft tissues: Normal. XR/XR ankle RT min 3V* [id number] IMPRESSION: No acute findings. Radiation Dose CTDIVOL = (mGy): DLP = (mGy-cm)
--- NOTE | 2021-03-29 17:25 | XRR_ITS ---
PROCEDURE INFORMATION: Exam: XR Pelvis Exam date and time: 03/29/2021 5:25 PM Age: 70 years old Clinical indication: Injury or trauma; Blunt trauma (contusions or hematomas); Right; Pelvic region; Injury details: Horse fell on PT. Pain in RT leg and RT side of chest/abd; Prior surgery; Surgery type: Appy, back, hernia TECHNIQUE: Imaging protocol: XR pelvis. Views: 1 or 2 view. COMPARISON: No relevant prior studies available. FINDINGS: Bones/joints: Intact well aligned left hip prosthesis. No pelvic or hip fracture. Moderate lower lumbar degenerative disease. Soft tissues: Visible soft tissues are unremarkable. XR/XR pelvis 1-2V* [id number] IMPRESSION: No acute fracture. Radiation Dose CTDIVOL = (mGy): DLP = (mGy-cm)
--- NOTE | 2021-03-29 17:25 | XRR_ITS ---
PROCEDURE INFORMATION: Exam: XR Chest Exam date and time: 03/29/2021 5:25 PM Age: 70 years old Clinical indication: Injury or trauma; Other: Horse fell on him; Blunt trauma (contusions or hematomas); Injury details: Horse fell on PT. Pain in RT leg and RT side of chest/abd; Prior surgery; Surgery type: Appy, back, RT hip TECHNIQUE: Imaging protocol: XR of the chest. Views: 1 view. COMPARISON: CR Chest 1 [place] [id number] 06/20/2016 2:21 PM FINDINGS: Lungs: Lungs are clear. Pleural spaces: There is no pleural effusion or pneumothorax. Heart/Mediastinum: Cardiomediastinal contours are unremarkable. Bones/joints: Bones are unremarkable. XR/XR chest 1V portable [id number] IMPRESSION: No acute findings. Radiation Dose CTDIVOL = (mGy): DLP = (mGy-cm)
[2021-03-29 17:51] LABS: Basophils % 0.2 %; Eosinophils % 0.2 %; Hematocrit 44.4 % (42.0-52.0); Hemoglobin 15.3 g/dL (11.7-16.6); Lymphocytes # 1.7 10^3/uL (0.8-4.8); Lymphocytes % 13.3 %; Mean Corpuscular HGB Conc 34.5 g/dL (30.0-36.0); Mean Corpuscular Hemoglobin 30.7 pg (28.0-34.0); Mean Corpuscular Volume 89.2 fl (80-94); Mean Platelet Volume 8.9 fL (7.4-10.4); Monocytes # 1.3 10^3/uL (0.2-0.9); Monocytes % 9.9 %; Neutrophils # 9.77 10^3/uL (1.8-7.7); Neutrophils % 76.1 %; Nucleated Red Blood Cells % 0 %; Platelet Count 181 10^3/cmm (130-400); Red Blood Count 4.98 10^6/uL (4.1-5.3); Red Cell Distribution Width 12.6 % (12.1-15.1); White Blood Count 12.9 10^3/uL (4.0-10.0)
[2021-03-29] MEDS: iodixanol 320 mg/mL 100mL Btl IV (17:57)
--- NOTE | 2021-03-29 17:58 | PC.NURSE ---
Pt arrived via POV from work. Pt reports she is 9 weeks with 5th , pt states around 1300 this afternoon she began having light bleeding and when she went to the bathroom she noticed some clots. Pt states she has only used one pantyliner so far but the bleeding has continued since. Pt reports nausea, denies any vomiting, states hse has a hx of 2 previous miscarriages. Pt A/O x4, vss, pt placed on monitor and changed into gown.
[2021-03-29 18:09] LABS: Alanine Aminotransferase 21 U/L (0-41); Albumin Level 4.3 g/dL (3.5-5.2); Alkaline Phosphatase 58 IU/L (40-130); Aspartate Amino Transferase 25 U/L (0-40); Blood Urea Nitrogen 16 mg/dL (8-23); Calcium 9.1 mg/dL (8.5-10.5); Carbon Dioxide 27 mmol/L (22-29); Chloride 102 mmol/L (98-107); Creatinine Clr Calc Pharmacy 94.2847; Globulin 2.9 g/dL (1.3-4.6); Glucose 113 mg/dL (65-115); Lipase 19 U/L (13-60); Osmolality Calculated 288 mOsm/kg (285-295); Sodium 138 mmol/L (136-145); Total Bilirubin 0.4 mg/dL (0.15-1.2); Total Protein 7.2 g/dL (6.6-8.7)
[2021-03-29 18:20] VITALS: RESP 16; O2SAT 97
[2021-03-29] MEDS: morphine 4 mg/mL SDV 1 mL IVP (18:20)
[2021-03-29] MEDS: tetanus-dipt-pertussis 0.5 mL SDV IM (18:30)
[2021-03-29 18:39] VITALS: BP 143/82; PULSE 76; RESP 16; TEMP 36.8; O2SAT 95
[2021-03-29 20:22] LABS: Add Urine Microscopic? YES; Bilirubin Urine Neg (Negative); Blood Urine Trace (Negative); Glucose Urine UA Norm (Normal); Ketones Urine Negative (Negative); Leukocyte Esterase Urine Negative (Negative); Nitrate Urine Negative (Negative); Protein Urine Neg (Negative); Specific Gravity, Urine 1.015 (1.005-1.030); Urine Appearance Clear (CLEAR); Urine Color Yellow (Yellow); Urobilinogen Urine Norm (Negative); pH Urine 7 (5-7)
[2021-03-29 20:26] LABS: Add Urine Culture? Yes; Bacteria Urine TRACE /hpf; RBC Urine 15-25 /hpf (0-2); Squamous Epithelial Cell Urine 0-4 /hpf (0-5); WBC Urine 0-4 /hpf (0-5)
[2021-03-29 20:43] VITALS: PULSE 74; RESP 18; O2SAT 98
--- NOTE | 2021-04-03 10:35 | DCPLANNER ---
compliance program manager had message stating that patient will need a repeat x-ray. compliance program manager called patient, asked patient if he had a primary care physician, that behavioral health case manager could schedule an appointment for patient to get the x-ray. Patient stated that he will be seeing EMILY Maza, and that there are no needs for behavioral health case manager at this time.
== END 2021-03-29 20:45 | disposition home or self-care (01) ==
PROVIDERS: Emergency Provider Emergency Medicine; PCP Nurse Practitioner Family
DX: S80.11XA Contusion of right lower leg, initial encounter (principal); M25.571 Pain in right ankle and joints of right foot; I25.10 Atherosclerotic heart disease of native coronary artery without angina pectoris; E78.5 Hyperlipidemia, unspecified; Z96.641 Presence of right artificial hip joint; V80.010A Animal-rider injured by fall from or being thrown from horse in noncollision accident, initial encounter; Z23 Encounter for immunization
CPT/HCPCS: 70450; 71045; 71275; 72125; 72170; 73560; 73590; 73610; 73620; 74174; 80053; 81001; 83690; 85025; 87086; 90471; 90715; 96374; 99283; E0114; J2270; Q9967

== ENCOUNTER 2021-04-04 12:35 | Outpatient (CLI) | payer MEDICARE, OTHER, SELFPAY ==
--- NOTE | 2021-04-04 12:00 | USCV_ITS ---
Marcos Kwan Age: 70 Gender: M : 1950 Exam Date: 04/04/2021 13:08 Ordering Phys: EMILY Maza APRN Technologist: MARGARETTE AGGARWAL Exam Location: [facility] – [place] Indication: TRAUMA TO RT LEG. HORSE FELL ON IT Risk Factors: Unknown Previous Vascular Surgery: None RIGHT LEFT BP: 148.0 / 86.00 BP: 130.0/ 82.00 0 0 Waveform Velocity (cm/s) Velocity (cm/s) Waveform Triphasic 103.0 Iliac Prox Triphasic 129.5 Iliac Mid Biphasic 158.3 Iliac Distal Triphasic 138.5 COMPENSATION SPECIALIST Triphasic 104.3 SFA Prox Triphasic 122.3 SFA Mid Triphasic 136.7 SFA Dist Triphasic 118.7 POP Biphasic 73.1 LICENSED PLUMBER Monophasic 25.6 DPA 0.9 KEANU FINDINGS RT LICENSED PLUMBER 130 RT DPA JUST A TRICKLE Resting KEANU of 0.9 on the right side Sluggish flow in the right dorsalis pedis artery CONCLUSIONS 1. A diminished resting KEANU of 0.9, suggestive of mild peripheral artery disease on the right side. 2. Abnormal Doppler of signals in the right dorsalis pedis artery, suggestive of severe disease in this vessel Dr Kiah Proctor MD [facility] (Electronically Signed) Final Date: 04 April 2021 22:27 S
== END 2021-04-04 12:36 | disposition home or self-care (01) ==
LOC: RAD 12:37
PROVIDERS: PCP Nurse Practitioner Family; Visit Provider Nurse Practitioner Family
DX: I82.409 Acute embolism and thrombosis of unspecified deep veins of unspecified lower extremity (principal); S89.91XA Unspecified injury of right lower leg, initial encounter; X58.XXXA Exposure to other specified factors, initial encounter; M79.604 Pain in right leg
CPT/HCPCS: 73590; 73610; 73630; 93926

== ENCOUNTER 2021-06-14 13:48 | Outpatient (CLI) | payer MEDICARE, OTHER, SELFPAY ==
--- NOTE | 2021-06-14 14:15 | USCV_ITS ---
Marcos Kwan Age: 70 Gender: M : 1950 Exam Date: 06/14/2021 14:30 Ordering Phys: Kiah Proctor MD ([email or web address]) Technologist: [id number] Exam Location: [facility] [place] Indication: Trauma / RT Leg Pain HISTORY: Trauma / RT Leg Pain PROCEDURES: Venous duplex imaging was performed in only the right lower extremity. The following venous structures were evaluated: common femoral vein, profunda vein, proximal portion of the greater saphenous vein, superficial femoral vein, and the popliteal vein. In addition, the posterior tibial and peroneal trunk were evaluated. Serial compression, augmentation maneuvers, and spectral Doppler flow evaluation were performed. Patient indicated palpable knot on lateral lower leg and pop fosa that were examined during the study. FINDINGS: Normal 2-D Doppler and augmentation and compressibility throughout the lower extremity venous structures. Additional imaging through the proximal calf veins also reveals no thrombus. Limited evaluation of the greater saphenous vein is patent with no thrombus.. Three separate areas of anechoic fluid with debris inside. Debris was mobile. Echogenic circumscribed lesions on the lateral aspect of the leg near the ankle and also at the lateral aspect of the right knee. One of the organized echogenic lesion near to the ankle measured 2.03 x 1.02 x 2.1. The 1 L the right knee measures 0.3 with 2 x 0.39 x 2.04 cm CONCLUSIONS No evidence of DVT in the above-mentioned identifiable veins. Echogenic circumscribed lesions surrounded by echolucent areas, suggesting soft tissue masses surrounded by fluid collection on the lateral aspect of the knee and ankle. Consider MRI or other imaging modalities to better delineate the tissue characteristics. No similar previous studies are available for comparison Dr Kiah Proctor MD [facility] (Electronically Signed) Final Date: 16 June 2021 18:17 S
== END 2021-06-14 13:49 | disposition home or self-care (01) ==
LOC: RAD 14:01
PROVIDERS: Visit Provider Internal Medicine Cardiovascular Disease
DX: M79.89 Other specified soft tissue disorders (principal); M79.604 Pain in right leg; R22.41 Localized swelling, mass and lump, right lower limb
CPT/HCPCS: 93971

== ENCOUNTER → 2021-07-02 11:04 | Outpatient (BNVA) | payer MEDICARE, OTHER, SELFPAY | PROVIDERS: PCP Family Medicine; Visit Provider Nurse Practitioner Family | DX: M79.89 Other specified soft tissue disorders (principal); M25.471 Effusion, right ankle; R53.83 Other fatigue; E78.2 Mixed hyperlipidemia; E55.9 Vitamin D deficiency, unspecified; S99.921A Unspecified injury of right foot, initial encounter; S89.91XA Unspecified injury of right lower leg, initial encounter; S99.911A Unspecified injury of right ankle, initial encounter; X58.XXXA Exposure to other specified factors, initial encounter; Z79.899 Other long term (current) drug therapy | CPT/HCPCS: 73590; 73610; 80053; 80061; 82306; 83036; 84443; 85025; G0103 ==

== ENCOUNTER → 2021-08-06 09:18 | Outpatient (BNVA) | payer MEDICARE, OTHER, SELFPAY | PROVIDERS: PCP Family Medicine; Visit Provider Nurse Practitioner Family | DX: R97.20 Elevated prostate specific antigen [PSA] (principal) | CPT/HCPCS: 84153 ==

== ENCOUNTER 2021-12-16 11:33 | Emergency (ER) | payer OTHER, MEDICARE, BC, SELFPAY ==
[2021-12-16 12:04] VITALS: BP 146/76; PULSE 83; RESP 16; TEMP 36.6; O2SAT 96; BMI 27.6
--- NOTE | 2021-12-16 14:22 | W.ED.MALEGU ---
HPI - Male Genitourinary General: Chief complaint: Urogenital-Male Stated complaint: dizzy, abd/back pain Time Seen by Provider: 12/16/21 14:22 Source: patient Mode of arrival: ambulatory Limitations: no limitations and language barrier History of Present Illness: 69-year-old male presents emergency room complaining of bilateral thigh pain that started last week. 2 days ago patient was seen in [place] found to have nephrolithiasis and was discharged home on oral pain medications he had difficult time getting them filled evidently he is still having pain feels like it is worsening. Tells me they told him the stones were 8 mm in diameter. He has not previously had renal stones. He does have a history of coronary disease and states he is on apixaban. He has noticed some slight hematuria. No dysuria urgency or frequency no fever. Onset (ago): week(s) (1) Duration: constant Location: right flank and left flank Severity: severe Quality: sharp Relieving factors: none Exacerbating factors: none Associated symptoms: Reports hematuria; Deny discharge, dysuria, fevers/chills, nausea, rash, swelling, urinary incontinence, urinary retention, mass or vomiting Review of Systems Const: Denies: fever(s), chills, body aches, change in appetite, fatigue or malaise ENMT: Denies: throat pain, ear or mastoid pain, nasal discharge or nasal congestion Card: Denies: chest pain, edema, dyspnea on exertion or orthopnea Resp: Denies: dyspnea, productive cough or non-productive cough GI: Denies: abdominal pain, nausea or vomiting : Reports: flank pain and hematuria; Denies: difficulty urinating, dysuria, urinary frequency, urinary urgency or urinary incontinence Skin/Breast: Denies: rash or pruritus [facility] ED PFSH: Medical History Acute bacterial sinusitis Arthritis CAD (coronary artery disease) Cellulitis DVT (deep venous thrombosis) DVT (deep venous thrombosis) Elevated PSA Encounter for medication management Environmental and seasonal allergies Fatigue Hyperlipidemia Injury of right knee, leg ankle and foot Lower respiratory tract infection Peripheral artery disease Prostate cancer screening Right ankle swelling Right leg pain Right leg swelling Vitamin D deficiency Surgical History History of back surgery S/P appendectomy Status post arterial stent Status post right hip replacement Family History Brother CAD (coronary artery disease), Onset Age: 50 Mother CAD (coronary artery disease), Onset Age: 50 Diabetes Sister CAD (coronary artery disease), Onset Age: 50 Father Cancer Other Hypertension Denies family history of Clotting disorder Dementia Chronic kidney disease (CKD) Suicide Anesthesia complication Bleeding disorder Lung disease Stroke Social History Smoking and tobacco status: never smoked Alcohol intake: current Alcohol intake frequency: few times a week Physical Exam Const: GENERAL APPEARANCE: cooperative and comfortable ORIENTATION/CONSCIOUSNESS: Yes awake, Yes oriented to person, Yes oriented to place and Yes oriented to time HENMT: COMMON NORMALS: normocephalic and atraumatic HEAD & SCALP: normocephalic and atraumatic Neck/C-Spine: COMMON NORMALS: no JVD Resp: COMMON NORMALS: normal respiratory effort, No retractions, No use of accessory muscles and clear to auscultation bilaterally AUSCULTATION: clear to auscultation bilaterally Cardio: COMMON NORMALS: no JVD, regular rate, regular rhythm and No murmurs present (Cardio) RATE: regular rate RHYTHM: regular rhythm GI: COMMON NORMALS: Soft to palpation and No hepatosplenomegaly present AUSCULTATION: Yes normoactive bowel sounds PALPATION: Yes Soft to palpation, No Tenderness to palpation present (GI), No Guarding due to palpation present (GI) and Yes No hepatosplenomegaly present Extremity: COMMON NORMALS: normal to inspection, capillary refill normal, no clubbing, cyanosis or edema, no calf tenderness and no pedal edema Neuro: SENSORIUM/ORIENTATION: Yes oriented to person, Yes oriented to place and Yes oriented to time Skin: COMMON NORMALS: no rashes or lesions noted GENERAL SKIN EXAM: no rashes or lesions noted Course Vital Signs: Vital signs: Vital Signs Temperature 97.8 F 12/16/21 12:04 Pulse Rate 78 12/16/21 16:00 Respiratory Rate 17 12/16/21 16:51 Blood Pressure 154/79 12/16/21 16:00 Pulse Oximetry 94 12/16/21 16:51 Oxygen Delivery Me thod 12/16/21 16:00 MDM - Male Medical Decision Making Right ureteral nephrolithiasis. 10 mm stone. Will refer to urology. Pain control achieved in the emergency room patient given pain medications to use also started on tamsulosin 1 if pain is not well controlled going forward he should return to the emergency room. Unfortunately our urology service is out of town we will have to refer him elsewhere.. Medical Records I reviewed the patient's medical records. Lab Data I reviewed the patient's lab results. : 12/16/21 17:05 12/16/21 17:05 Radiology Impressions Abdomen/Pelvis CT 12/16/21 14:32 IMPRESSION: 1. 10 mm obstructing calculus in the proximal right ureter with moderate hydronephrosis. 2. Bilateral renal calculi. 3. 3 mm bladder calculus versus recently passed renal calculus. COMMENTS: Consistent with the [employer]'s Incidental Findings Committee white paper (J Am Mariangel Radiol 2018): Any incidental renal lesion less than 1 cm or classified as too small to characterize, or any incidental cystic renal lesion characterized as simple-appearing, is likely benign. No follow-up imaging is recommended for these lesions per consensus recommendations based on imaging criteria. Laboratory Results WBC 14.0 10^3/uL (4.0-10.0) H 12/16/21 17:05 RBC 4.86 10^6/uL (4.1-5.3) 12/16/21 17:05 Hgb 14.7 g/dL (11.7-16.6) 12/16/21 17:05 Hct 44.8 % (42.0-52.0) 12/16/21 17:05 MCV 92.2 fl (80-94) 12/16/21 17:05 MCH 30.2 pg (28.0-34.0) 12/16/21 17:05 MCHC 32.8 g/dL (30.0-36.0) 12/16/21 17:05 RDW 12.8 % (12.1-15.1) 12/16/21 17:05 Plt Count 166 10^3/cmm (130-400) 12/16/21 17:05 MPV 9.0 fL (7.4-10.4) 12/16/21 17:05 Neut % (Auto) 77.9 % 12/16/21 17:05 Lymph % (Auto) 9.4 % 12/16/21 17:05 [place] % (Auto) 11.6 % 12/16/21 17:05 Eos % (Auto) 0.7 % 12/16/21 17:05 Baso % (Auto) 0.1 % 12/16/21 17:05 Neut # (Auto) 10.87 10^3/uL (1.8-7.7) H 12/16/21 17:05 Lymph # (Auto) 1.3 10^3/uL (0.8-4.8) 12/16/21 17:05 [place] # (Auto) 1.6 10^3/uL (0.2-0.9) H 12/16/21 17:05 Eos # (Auto) 0.1 10^3/uL (0.0-0.8) 12/16/21 17:05 Baso # (Auto) 0.0 10^3/uL (0.0-0.1) 12/16/21 17:05 Nucleated RBC % (auto) 0 % 12/16/21 17:05 Nucleated RBCs # 0.0 /100WBC 12/16/21 17:05 Sodium 135 mmol/L (136-145) L 12/16/21 17:05 Potassium 4.4 mmol/L (3.5-5.1) 12/16/21 17:05 Chloride 100 mmol/L (98-107) 12/16/21 17:05 Carbon Dioxide 27 mmol/L (22-29) 12/16/21 17:05 Anion Gap 12.4 (5-19) 12/16/21 17:05 BUN 21 mg/dL (8-23) 12/16/21 17:05 Creatinine 1.2 mg/dL (0.7-1.2) 12/16/21 17:05 GFR Calculation Not Reportable 12/16/21 17:05 Glucose 106 mg/dL (65-115) 12/16/21 17:05 Calculated Osmolality 283 mOsm/kg (285-295) L 12/16/21 17:05 Calcium 8.9 mg/dL (8.5-10.5) 12/16/21 17:05 Total Bilirubin 0.6 mg/dL (0.15-1.2) 12/16/21 17:05 AST 18 U/L (0-40) 12/16/21 17:05 ALT 16 U/L (0-41) 12/16/21 17:05 Alkaline Phosphatase 75 IU/L (40-130) 12/16/21 17:05 Total Protein 6.8 g/dL (6.6-8.7) 12/16/21 17:05 Albumin 4.2 g/dL (3.5-5.2) 12/16/21 17:05 Globulin 2.6 g/dL (1.3-4.6) 12/16/21 17:05 Urine Color Yellow (Yellow) 12/16/21 15:41 Urine Appearance Clear (CLEAR) 12/16/21 15:41 Urine pH 6.5 (5-7) 12/16/21 15:41 Ur Specific [place] 1.010 (1.005-1.030) 12/16/21 15:41 Urine Protein Neg (Negative) 12/16/21 15:41 Urine Glucose (UA) Norm (Normal) 12/16/21 15:41 Urine Ketones 1+ (Negative) H 12/16/21 15:41 Urine Blood 3+ (Negative) H 12/16/21 15:41 Urine Nitrate Negative (Negative) 12/16/21 15:41 Urine Bilirubin Neg (Negative) 12/16/21 15:41 Urine Urobilinogen Norm mg/dL (Negative) 12/16/21 15:41 Ur Leukocyte Esterase Negative (Negative) 12/16/21 15:41 Urine RBC 15-25 /hpf (0-2) H 12/16/21 15:41 Urine WBC Rare /hpf (0-5) 12/16/21 15:41 Ur Squamous Epith Cells None /hpf (0-5) 12/16/21 15:41 Amorphous Sediment Not Reportable 12/16/21 15:41 Urine Bacteria Trace /hpf (NONE) 12/16/21 15:41 Discharge Plan Discharge Patient Disposition: Home Clinical Impression: Nephrolithiasis Condition: Stable Prescriptions: New hydrocodone-acetaminophen 5-325 mg tablet 1 tab PO Q6H PRN (Reason: pain) Qty: 14 0RF ondansetron HCl 4 mg tablet 4 mg PO Q6H PRN (Reason: nausea and vomiting) Qty: 20 0RF Flomax 0.4 mg capsule 0.4 mg PO DAILY Qty: 14 0RF No Action glucosamine-chondroitin [Osteo Bi-Flex] 250-200 mg tablet 2 tab PO DAILY Rx Instructions: give after food/meal tamsulosin 0.4 mg capsule 0.4 mg PO DAILY apixaban 2.5 mg tablet 2.5 mg PO BID atorvastatin 20 mg tablet 20 mg PO DAILY tramadol 50 mg tablet 50 mg PO DAILY PRN (Reason: pain) Vitamin C 1,000 mg Tablet Extended Release 1,000 mg PO Q12H amlodipine 2.5 mg Tablet 2.5 mg PO DAILY Tylenol Ex Str Rapid Release 500 mg Tablet 500 mg PO Q6H PRN (Reason: Pain) garlic 1,000 mg Capsule 1,000 mg PO DAILY Stool Softener 100 mg Capsule 100 mg PO DAILY oxycodone 30 mg Tablet 30 mg PO Q8H PRN (Reason: Pain) finasteride 5 mg Tablet 5 mg PO DAILY Multi M Vitamin Tablet 1 tab PO DAILY Vitamin D3 25 mcg (1,000 unit) Capsule 25 mcg PO DAILY calcium citrate 200 mg (950 mg) Tablet 200 mg PO DAILY tadalafil 20 mg Tablet 20 mg PO DAILY PRN (Reason: Erectile Dysfunction) Rx Instructions: administer approximately 30min before sexual activity; do not use more than 1 dose per 24hrs vitamin D97-[id number] acid 500-400 mcg Tablet 1 tab PO DAILY Rx Instructions: administer with a meal Probiotic 10 billion cell Capsule 10,000 mmu cells PO DAILY Discharge Orders: Discharge ED (Routine); Ordered 12/16/21 Ordered By: Jorge Bishop Referrals: Kike Pete MD [Primary Care Provider] - Discharge Diet: Usual diet Discharge Activity: Increase activity as tolerated Patient Instructions: Opioid Safety Activity Restrictions/Additional Instructions: Case management will make arrangements for her to see urology. Coding Level of Care Code ED [employer] for Sanjeev Fwd Exam Comprehensive
--- NOTE | 2021-12-16 14:32 | CTR_ITS ---
PROCEDURE INFORMATION: Exam: CT Abdomen And Pelvis Without Contrast Exam date and time: 12/16/2021 4:27 PM Age: 71 years old Clinical indication: Other: RT flank pain without relief since sat; Prior surgery; Surgery date: 6+ months; Surgery type: Appx, lumbar, spine TECHNIQUE: Imaging protocol: Computed tomography of the abdomen and pelvis without contrast. Radiation optimization: All CT scans at this facility use at least one of these dose optimization techniques: automated exposure control; mA and/or kV adjustment per patient size (includes targeted exams where dose is matched to clinical indication); or iterative reconstruction. COMPARISON: CT angio chest abdomen pelvis 03/29/2021 5:49 PM RADIATION DOSE METRICS: Total DLP (mGy-cm): 1115.99 FINDINGS: Lungs: Calcified granulomas in the left lung base. Heart: Coronary artery calcifications. Liver: Normal. No mass. Gallbladder and bile ducts: Normal. No calcified stones. No ductal dilation. Pancreas: Normal. No ductal dilation. Spleen: Normal. No splenomegaly. Adrenal glands: Normal. No mass. Kidneys and ureters: 10 mm calculus in the proximal right ureter. Moderate right hydronephrosis. Multiple 2-3 mm right renal calculi. 3 mm left renal calculus. Mild perinephric stranding, right greater than left. Left renal cyst, Hounsfield units less than 20. No follow-up imaging is recommended. Stomach and bowel: Unremarkable. No obstruction. No mucosal thickening. Appendix: The appendix is not visualized. No secondary signs of appendicitis. Intraperitoneal space: Unremarkable. No free air. No significant fluid collection. Vasculature: Arterial calcifications. No aneurysm. Lymph nodes: Unremarkable. No enlarged lymph nodes. Urinary bladder: 3 mm calculus in the posterior urinary bladder. No wall thickening. Reproductive: Mildly enlarged prostate with coarse calcifications. Bones/joints: Right hip arthroplasty hardware with streak artifact. Degenerative changes of the lumbar and thoracic spine. No fracture. Anterior and posterior fusion L2-L3. Soft tissues: Small fat containing inguinal hernias. Injection granulomas in the right buttock. CT/CT kidney stone [id number] IMPRESSION: 1. 10 mm obstructing calculus in the proximal right ureter with moderate hydronephrosis. 2. Bilateral renal calculi. 3. 3 mm bladder calculus versus recently passed renal calculus. COMMENTS: Consistent with the [employer]'s Incidental Findings Committee white paper (J Am Mariangel Radiol 2018): Any incidental renal lesion less than 1 cm or classified as too small to characterize, or any incidental cystic renal lesion characterized as simple-appearing, is likely benign. No follow-up imaging is recommended for these lesions per consensus recommendations based on imaging criteria.
[2021-12-16 15:04] VITALS: RESP 18; O2SAT 97
[2021-12-16] MEDS: morphine 4 mg/mL SDV 1 mL IVP ×2 (15:04→16:51)
[2021-12-16] MEDS: ondansetron 2 mg/ML SDV 2 mL 4 MG IVP (15:04)
[2021-12-16 15:18] VITALS: BP 170/95; PULSE 81; RESP 16; O2SAT 95
[2021-12-16 16:00] VITALS: BP 154/79; PULSE 78; O2SAT 93
[2021-12-16 16:51] VITALS: RESP 17; O2SAT 94
[2021-12-16 17:04] LABS: Add Urine Microscopic? YES; Bilirubin Urine Neg (Negative); Blood Urine 3+ (Negative); Glucose Urine UA Norm (Normal); Ketones Urine 1+ (Negative); Leukocyte Esterase Urine Negative (Negative); Nitrate Urine Negative (Negative); Protein Urine Neg (Negative); Urine Appearance Clear (CLEAR); Urine Color Yellow (Yellow); Urobilinogen Urine Norm (Negative); pH Urine 6.5 (5-7)
[2021-12-16 17:05] LABS: Add Urine Culture? Yes; Bacteria Urine TRACE /hpf; RBC Urine 15-25 /hpf (0-2); WBC Urine RARE /hpf (0-5)
[2021-12-16 17:13] LABS: Basophils % 0.1 %; Eosinophils # 0.1 10^3/uL (0.0-0.8); Eosinophils % 0.7 %; Hematocrit 44.8 % (42.0-52.0); Hemoglobin 14.7 g/dL (11.7-16.6); Lymphocytes # 1.3 10^3/uL (0.8-4.8); Lymphocytes % 9.4 %; Mean Corpuscular HGB Conc 32.8 g/dL (30.0-36.0); Mean Corpuscular Hemoglobin 30.2 pg (28.0-34.0); Mean Corpuscular Volume 92.2 fl (80-94); Monocytes # 1.6 10^3/uL (0.2-0.9); Monocytes % 11.6 %; Neutrophils # 10.87 10^3/uL (1.8-7.7); Neutrophils % 77.9 %; Nucleated Red Blood Cells % 0 %; Platelet Count 166 10^3/cmm (130-400); Red Blood Count 4.86 10^6/uL (4.1-5.3); Red Cell Distribution Width 12.8 % (12.1-15.1)
[2021-12-16 17:38] LABS: Alanine Aminotransferase 16 U/L (0-41); Albumin Level 4.2 g/dL (3.5-5.2); Alkaline Phosphatase 75 IU/L (40-130); Anion Gap 12.4 (5-19); Aspartate Amino Transferase 18 U/L (0-40); Blood Urea Nitrogen 21 mg/dL (8-23); Calcium 8.9 mg/dL (8.5-10.5); Carbon Dioxide 27 mmol/L (22-29); Chloride 100 mmol/L (98-107); Globulin 2.6 g/dL (1.3-4.6); Glucose 106 mg/dL (65-115); Osmolality Calculated 283 mOsm/kg (285-295); Potassium 4.4 mmol/L (3.5-5.1); Sodium 135 mmol/L (136-145); Total Bilirubin 0.6 mg/dL (0.15-1.2); Total Protein 6.8 g/dL (6.6-8.7)
--- NOTE | 2021-12-17 15:58 | DCPLANNER ---
Addendum entered by Kanchan Sher 12/18/21 13:58: Due to Dr. Collins being out of the office patient requested to go somewhere else, case assembler faxed records. Original Note: Patient called case assembler regarding follow up appointment. sales administration manager sent patients information to the front office staff at urology. Patients information will be printed and reviewed. Clinic will call patient with appointment information.
== END 2021-12-16 18:12 | disposition home or self-care (01) ==
PROVIDERS: Physician Assistant; Emergency Provider Family Medicine; PCP Family Medicine
DX: N20.0 Calculus of kidney (principal); I25.10 Atherosclerotic heart disease of native coronary artery without angina pectoris; E78.5 Hyperlipidemia, unspecified; Z87.440 Personal history of urinary (tract) infections
CPT/HCPCS: 74176; 80053; 81001; 85025; 87086; 96375; 96376; 99285; J2270; J2405

== ENCOUNTER 2022-05-30 06:31 | Outpatient (CLI) | payer MEDICARE, SELFPAY ==
--- NOTE | 2022-05-30 09:30 | USCV_ITS ---
Marcos Kwan Age: 71 Gender: M : 1950 Exam Date: 05/30/2022 07:03 Ordering Phys: Aniya Angulo EMPLOYEE RELATIONS SPECIALIST EMPLOYEE RELATIONS SPECIALIST Technologist: ADITYA [place] [facility] [place]: R[place] pain HISTORY: Lower extremity pain. Horse rolled over his leg PROCEDURES: Venous duplex imaging was performed in only the right lower extremity. The following venous structures were evaluated: common femoral vein, profunda vein, proximal portion of the greater saphenous vein, superficial femoral vein, and the popliteal vein. In addition, the posterior tibial and peroneal trunk were evaluated. Serial compression, augmentation maneuvers, and spectral Doppler flow evaluation were performed. FINDINGS: No evidence of DVT seen in any vessel visualized at this time. CONCLUSIONS No evidence of right lower extremity DVT. Right lower leg soft tissue edema with hematoma in the area of injury Misbah Maher MD (Electronically Signed) Final Date: 30 May 2022 10:33 S
== END 2022-05-30 06:32 | disposition home or self-care (01) ==
PROVIDERS: PCP Family Medicine; Visit Provider Nurse Practitioner
DX: M79.604 Pain in right leg (principal); R60.0 Localized edema
CPT/HCPCS: 93971

== ENCOUNTER 2023-01-30 18:21 | Outpatient (CLI) | payer MEDICARE, SELFPAY ==
[2023-01-30 18:50] LABS: Add Urine Microscopic? YES; Bilirubin Urine Neg (Negative); Blood Urine 3+ (Negative); Glucose Urine UA Norm (Normal); Ketones Urine Negative (Negative); Leukocyte Esterase Urine 2+ (Negative); Nitrate Urine Negative (Negative); Protein Urine Neg (Negative); RBC Urine 25-40 /hpf (0-2); Specific Gravity, Urine 1.025 (1.005-1.030); Squamous Epithelial Cell Urine 0-4 /hpf (0-5); Urine Appearance Cloudy (CLEAR); Urine Color Yellow (Yellow); Urobilinogen Urine Neg (Negative); WBC Urine 55-80 /hpf (0-5); pH Urine 6 (5-7)
[2023-01-30 18:51] LABS: Add Urine Culture? Yes; Amorphous Sediment Urine 1+ /hpf; Bacteria Urine 3+ /hpf; Mucus Urine 1+ /hpf
== END 2023-01-30 18:22 | disposition home or self-care (01) ==
PROVIDERS: PCP Family Medicine; Visit Provider Family Medicine
DX: Z01.89 Encounter for other specified special examinations (principal)
CPT/HCPCS: 81001; 87086

== ENCOUNTER → 2023-04-13 15:34 | Outpatient (BNVA) | payer MEDICARE, SELFPAY | PROVIDERS: PCP Family Medicine; Visit Provider Nurse Practitioner Family | DX: E55.9 Vitamin D deficiency, unspecified (principal); R53.83 Other fatigue; Z12.5 Encounter for screening for malignant neoplasm of prostate; E78.5 Hyperlipidemia, unspecified | CPT/HCPCS: 81003; 87077; 87086; 87184 ==

== ENCOUNTER → 2023-04-14 08:46 | Outpatient (BNVA) | payer MEDICARE, SELFPAY | PROVIDERS: PCP Family Medicine; Visit Provider Nurse Practitioner Family | DX: E55.9 Vitamin D deficiency, unspecified (principal); E78.5 Hyperlipidemia, unspecified; R53.83 Other fatigue; Z12.5 Encounter for screening for malignant neoplasm of prostate; Z79.899 Other long term (current) drug therapy | CPT/HCPCS: 80053; 80061; 82306; 83036; 84443; 85025; G0103 ==

== ENCOUNTER 2023-04-21 06:00 | Outpatient (RCR) | payer MEDICARE, SELFPAY | END 2023-04-23 23:59 | disposition home or self-care (01) | LOC: WPT 06:00 | PROVIDERS: PCP Family Medicine; Visit Provider Nurse Practitioner Family | DX: S06.2X9D Diffuse traumatic brain injury with loss of consciousness of unspecified duration, subsequent encounter (principal); X58.XXXD Exposure to other specified factors, subsequent encounter | CPT/HCPCS: 97110; 97112; 97162; 97530 ==

== ENCOUNTER 2023-04-23 18:18 | Emergency (ER) | payer MEDICARE, SELFPAY ==
[2023-04-23 18:19] VITALS: BMI 27.3
[2023-04-23 18:23] VITALS: BP 130/71; PULSE 81; RESP 16; TEMP 37.1; O2SAT 95
--- NOTE | 2023-04-23 18:33 | ED_ITS ---
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 Per EMS family stated that he had been feeling warm to touch and complained of some abdominal pain. He does have a feeding tube in place that he does not use they were concerned there is some erythema around it here patient denies pain but it is difficult to get history from him due to the TBI Review of Systems 2 General: Reports: ROS unobtainable due to mental status PFSH ED 2 PFSH: Medical History UTI (urinary tract infection) due to Enterococcus Gastrostomy tube in place Generalized weakness Elevated PSA Right leg swelling Right ankle swelling Cellulitis Peripheral artery disease Injury of right knee, leg ankle and foot Right leg pain DVT (deep venous thrombosis) Acute bacterial sinusitis Arthritis Vitamin D deficiency Fatigue Prostate cancer screening Encounter for medication management Environmental and seasonal allergies Lower respiratory tract infection CAD (coronary artery disease) Hyperlipidemia DVT (deep venous thrombosis) Surgical History S/P appendectomy Status post right hip replacement Status post arterial stent History of back surgery Family History Brother CAD (coronary artery disease), Onset Age: 50 Mother CAD (coronary artery disease), Onset Age: 50 Diabetes Sister CAD (coronary artery disease), Onset Age: 50 Father Cancer Other Hypertension Denies family history of Clotting disorder Dementia Chronic kidney disease (CKD) Suicide Anesthesia complication Bleeding disorder Lung disease Stroke Social History Smoking and tobacco/nicotine status: never used tobacco/nicotine Alcohol intake: current Alcohol intake frequency: few times a week Physical Exam 2 Const: COMMON NORMALS: no acute distress and healthy appearing; negative for patient oriented x3 HENMT: COMMON NORMALS: normocephalic and atraumatic HEAD & SCALP: n ormocephalic and atraumatic Eye: COMMON NORMALS: Equal, round and reactive pupils present and EOMs intact bilaterally PUPIL: Yes Equal, round and reactive pupils present Neck/C-Spine: COMMON NORMALS: full ROM and supple Chest: COMMONS NORMALS: normal inspection of the chest and normal palpation of entire chest wall Resp: COMMON NORMALS: normal respiratory effort, No retractions, No use of accessory muscles and clear to auscultation bilaterally AUSCULTATION: clear to auscultation bilaterally Cardio: COMMON NORMALS: regular rate, regular rhythm and No murmurs present (Cardio) RATE: regular rate RHYTHM: regular rhythm GI: COMMON NORMALS: Normal to inspection, nondistended, normoactive bowel sounds present, Soft to palpation, non-tender and no masses PALPATION: Yes Soft to palpation OTHER: Feeding tube is in place no erythema around it Extremity: COMMON NORMALS: normal to inspection and full ROM Neuro: COMMON NORMALS: moves all extremities and no focal motor deficits; negative for patient oriented x3 Psych: COMMON NORMALS: Normal thought process present and cooperative T HOUGHT PROCESS: Normal thought process present Skin: COMMON NORMALS: no rashes or lesions noted and no wounds GENERAL SKIN EXAM: no rashes or lesions noted Course 2 Vital Signs: Vital signs: Vital Signs Temperature 98.8 F 04/23/23 18:23 Pulse Rate 80 04/23/23 20:50 Respiratory Rate 16 04/23/23 18:23 Blood Pressure 113/67 04/23/23 20:50 Pulse Oximetry 95 04/23/23 20:50 Oxygen Delivery Me thod Room Air 04/23/23 18:23 MDM - Abdominal Pain Medical Decision Making Patient presents with abdominal pain he is well-appearing here abdominal exam here is benign no tenderness blood work urinalysis are normal he stable for discharge follow-up with PCP and return if worsening. Medical Records I reviewed the patient's medical records. Lab Data I reviewed the patient's lab results. 04/23/23 16:55 04/23/23 16:55 Labs/Radiology: Laboratory Results WBC 9.25 10^3/uL (3.29-11.43) 04/23/23 16:55 RBC 3.81 10^6/uL (3.85-5.65) L 04/23/23 16:55 Hgb 10.30 g/dL (11.27-16.99) L 04/23/23 16:55 Hct 32.9 % (37-53) L 04/23/23 16:55 MCV 86.4 fl (82-101) 04/23/23 16:55 MCH 27.0 pg (27-33) 04/23/23 16:55 MCHC 31.3 g/dL (30-55) 04/23/23 16:55 RDW 17.3 % (12.1-15.1) H 04/23/23 16:55 Plt Count 239 10^3/cmm (157-399) 04/23/23 16:55 MPV 9.1 fL (7.4-10.4) 04/23/23 16:55 Neut % (Auto) 74.4 % 04/23/23 16:55 Lymph % (Auto) 13.5 % 04/23/23 16:55 [place] % (Auto) 9.1 % 04/23/23 16:55 Eos % (Auto) 2.3 % 04/23/23 16:55 Baso % (Auto) 0.4 % 04/23/23 16:55 Neut # (Auto) 6.88 10^3/uL (1.8-7.7) 04/23/23 16:55 Lymph # (Auto) 1.3 10^3/uL (0.8-4.8) 04/23/23 16:55 [place] # (Auto) 0.8 10^3/uL (0.2-0.9) 04/23/23 16:55 Eos # (Auto) 0.2 10^3/uL (0.0-0.8) 04/23/23 16:55 Baso # (Auto) 0.0 10^3/uL (0.0-0.1) 04/23/23 16:55 Nucleated RBC % (auto) 0 % 04/23/23 16:55 Nucleated RBCs # 0.0 /100WBC 04/23/23 16:55 Sodium 135 mmol/L (136-145) L 04/23/23 16:55 Potassium 4.1 mmol/L (3.5-5.1) 04/23/23 16:55 Chloride 102 mmol/L (98-107) 04/23/23 16:55 Carbon Dioxide 22 mmol/L (22-29) 04/23/23 16:55 Anion Gap 15.1 (5-19) 04/23/23 16:55 BUN 23 mg/dL (8-23) 04/23/23 16:55 Creatinine 0.6 mg/dL (0.7-1.2) L 04/23/23 16:55 GFR Calculation Not Reportable 04/23/23 16:55 Glucose 107 mg/dL (65-115) 04/23/23 16:55 Calculated Osmolality 284 mOsm/kg (285-295) L 04/23/23 16:55 Calcium 8.8 mg/dL (8.5-10.5) 04/23/23 16:55 Total Bilirubin 0.3 mg/dL (0.15-1.2) 04/23/23 16:55 AST 25 U/L (0-40) 04/23/23 16:55 ALT 23 U/L (0-41) 04/23/23 16:55 Alkaline Phosphatase 107 U/L (40-130) 04/23/23 16:55 Total Protein 6.8 g/dL (6.6-8.7) 04/23/23 16:55 Albumin 3.8 g/dL (3.5-5.2) 04/23/23 16:55 Globulin 3.0 g/dL (1.3-4.6) 04/23/23 16:55 Lipase 20 U/L (13-60) 04/23/23 16:55 Urine Color Yellow (Yellow) 04/23/23 18:41 Urine Appearance Clear (CLEAR) 04/23/23 18:41 Urine pH 5 (5-7) 04/23/23 18:41 Ur Specific [place] 1.020 (1.005-1.030) 04/23/23 18:41 Urine Protein Neg (Negative) 04/23/23 18:41 Urine Glucose (UA) Norm (Normal) 04/23/23 18:41 Urine Ketones Negative (Negative) 04/23/23 18:41 Urine Blood Neg (Negative) 04/23/23 18:41 Urine Nitrate Negative (Negative) 04/23/23 18:41 Urine Bilirubin Neg (Negative) 04/23/23 18:41 Urine Urobilinogen Norm mg/dL (Negative) 04/23/23 18:41 Ur Leukocyte Esterase Trace (Negative) H 04/23/23 18:41 Urine RBC Rare /hpf (0-2) 04/23/23 18:41 Urine WBC 15-25 /hpf (0-5) H 04/23/23 18:41 Ur Squamous Epith Cells 0-4 /hpf (0-5) H 04/23/23 18:41 Ur Transition Epith Cell 0-4 /hpf 04/23/23 18:41 Amorphous Sediment Not Reportable 04/23/23 18:41 Urine Bacteria Trace /hpf (NONE) 04/23/23 18:41 Urine Mucus 2+ /hpf 04/23/23 18:41 Urine Yeast 1+ /hpf H 04/23/23 18:41 No radiology studies performed this visit Discharge Plan Discharge Patient Disposition: Home Clinical Impression: Abdominal pain Qualifiers: Abdominal location: generalized Qualified Code(s): R10.84 - Generalized abdominal pain Condition: Stable Prescriptions: No Action aspirin 81 mg tablet,delayed release (DR/EC) 81 mg PO DAILY ciprofloxacin HCl [Cipro] 250 mg tablet 250 mg PO Q12H 7 Days Qty: 14 0RF fluconazole 150 mg tablet 150 mg PO Q3D Qty: 2 0RF Rx Instructions: repeat second dose 72 hrs Probiotic 10 billion cell Capsule 10,000 mmu cells PO DAILY Discharge Orders: Discharge ED (Routine); Ordered 04/23/23 Ordered By: Tanna Stevens Referrals: Kike Pete MD [Primary Care Provider] - 1-3 days Discharge Diet: Advance as tolerated Discharge Activity: Resume usual activity Patient Instructions: Abdominal Pain (ED) Coding Level of Care Code ED Water Restoration Technician for Sanjeev Maldonado
--- NOTE | 2023-04-23 19:05 | PC.NURSE ---
this rn took over pt care at 1900 from RAQUEL Woodard
[2023-04-23 19:21] LABS: Basophils % 0.4 %; Eosinophils # 0.2 10^3/uL (0.0-0.8); Eosinophils % 2.3 %; Hematocrit 32.9 % (37-53); Lymphocytes # 1.3 10^3/uL (0.8-4.8); Lymphocytes % 13.5 %; Mean Corpuscular HGB Conc 31.3 g/dL (30-55); Mean Corpuscular Volume 86.4 fl (82-101); Mean Platelet Volume 9.1 fL (7.4-10.4); Monocytes # 0.8 10^3/uL (0.2-0.9); Monocytes % 9.1 %; Neutrophils # 6.88 10^3/uL (1.8-7.7); Neutrophils % 74.4 %; Nucleated Red Blood Cells % 0 %; Platelet Count 239 10^3/cmm (157-399); Red Blood Count 3.81 10^6/uL (3.85-5.65); Red Cell Distribution Width 17.3 % (12.1-15.1); White Blood Count 9.25 10^3/uL (3.29-11.43)
[2023-04-23 19:30] LABS: Add Urine Microscopic? YES; Bilirubin Urine Neg (Negative); Blood Urine Neg (Negative); Glucose Urine UA Norm (Normal); Ketones Urine Negative (Negative); Leukocyte Esterase Urine Trace (Negative); Nitrate Urine Negative (Negative); Protein Urine Neg (Negative); Urine Appearance Clear (CLEAR); Urine Color Yellow (Yellow); Urobilinogen Urine Norm (Negative); pH Urine 5 (5-7)
[2023-04-23 19:33] LABS: Bacteria Urine TRACE /hpf; Mucus Urine 2+ /hpf; RBC Urine RARE /hpf (0-2); Squamous Epithelial Cell Urine 0-4 /hpf (0-5); Transitional Epi Cells Urine 0-4 /hpf; WBC Urine 15-25 /hpf (0-5)
[2023-04-23 19:34] LABS: Add Urine Culture? Yes
[2023-04-23 20:16] LABS: Alanine Aminotransferase 23 U/L (0-41); Albumin Level 3.8 g/dL (3.5-5.2); Alkaline Phosphatase 107 U/L (40-130); Anion Gap 15.1 (5-19); Aspartate Amino Transferase 25 U/L (0-40); Blood Urea Nitrogen 23 mg/dL (8-23); Calcium 8.8 mg/dL (8.5-10.5); Carbon Dioxide 22 mmol/L (22-29); Chloride 102 mmol/L (98-107); Glucose 107 mg/dL (65-115); Lipase 20 U/L (13-60); Osmolality Calculated 284 mOsm/kg (285-295); Potassium 4.1 mmol/L (3.5-5.1); Sodium 135 mmol/L (136-145); Total Bilirubin 0.3 mg/dL (0.15-1.2); Total Protein 6.8 g/dL (6.6-8.7)
[2023-04-23] MEDS: LORazepam 2 mg/mL INJ 1 mL 1 MG IVP (20:38)
[2023-04-23 20:50] VITALS: BP 113/67; PULSE 80; O2SAT 95
== END 2023-04-23 20:52 | disposition home or self-care (01) ==
PROVIDERS: Emergency Provider Emergency Medicine; PCP Family Medicine
DX: R10.84 Generalized abdominal pain (principal); Z79.82 Long term (current) use of aspirin; I25.10 Atherosclerotic heart disease of native coronary artery without angina pectoris; E78.5 Hyperlipidemia, unspecified
CPT/HCPCS: 80053; 81001; 83690; 85025; 87086; 87106; 96374; 99285; J2060

== ENCOUNTER 2023-04-24 06:00 | Outpatient (RCR) | payer MEDICARE, SELFPAY | END 2023-05-24 23:59 | disposition home or self-care (01) | LOC: WPT 06:00 | PROVIDERS: PCP Family Medicine; Visit Provider Nurse Practitioner Family | DX: S06.2X9D Diffuse traumatic brain injury with loss of consciousness of unspecified duration, subsequent encounter (principal); R53.1 Weakness; X58.XXXD Exposure to other specified factors, subsequent encounter | CPT/HCPCS: 97110; 97112; 97530 ==

== ENCOUNTER → 2023-04-27 13:40 | Outpatient (BNVA) | payer MEDICARE, SELFPAY | PROVIDERS: PCP Family Medicine; Visit Provider Nurse Practitioner Family | DX: R41.0 Disorientation, unspecified (principal); R06.02 Shortness of breath; M79.89 Other specified soft tissue disorders; R53.83 Other fatigue; D64.9 Anemia, unspecified | CPT/HCPCS: 80053; 81000; 82728; 83550; 83735; 83880; 84100; 85025 ==

== ENCOUNTER → 2023-05-15 10:12 | Outpatient (BNVA) | payer MEDICARE, SELFPAY | PROVIDERS: PCP Nurse Practitioner Family; Referring Provider Nurse Practitioner Family; Visit Provider Specialist | DX: S06.9XAA Unspecified intracranial injury with loss of consciousness status unknown, initial encounter (principal); G93.1 Anoxic brain damage, not elsewhere classified; F02.80 Dementia in other diseases classified elsewhere, unspecified severity, without behavioral disturbance, psychotic disturbance, mood disturbance, and anxiety; X58.XXXA Exposure to other specified factors, initial encounter | CPT/HCPCS: 99205 ==

== ENCOUNTER 2023-06-05 12:31 | Outpatient (CLI) | payer MEDICARE, SELFPAY ==
--- NOTE | 2023-06-05 13:00 | MR_ITS ---
WS: [id number] MRI BRAIN WITHOUT CONTRAST HISTORY: S06.9XAA - Unspecified intracranial injury with loss of c... COMPARISON: CT head 03/29/2021 TECHNIQUE: Diffusion imaging, multiplanar T1, T2 and FLAIR imaging obtained. No acute infarct. Diffusion imaging is normal. No acute hemorrhage. Moderate atrophy. There is symmetric increased T2 signal and volume loss in the frontal lobes which i s probably posttraumatic. There is also of mild hemosiderin deposition in the anterior frontal lobes. Increased T2 signal extends into the cortex of the anterior temporal lobes. Mild bilateral hippocamp al atrophy. Mild to moderate small vessel ischemic changes in subcortical white matter otherwise. Ventricles and extra-axial spaces are mildly prominent on the basis of atrophy. No inferior displacement of cerebellar tonsils. The sella turcica and pituitary gland are unremarkabl e. Dural venous sinuses and [place] demonstrate no abnormality on this unenhanced studies. Paranasal sinuses: Clear. Mastoid air cells: Normal. Calvarium and scalp: Intact. IMPRESSION: 1. Symmetric, bilateral frontal lobe gliosis with volume loss and hemosiderin. Probably posttraumati c brain injury due to the location and appearance. There is also mild symmetric gliosis in the anteri or temporal lobe cortex. 2. Mild symmetric atrophy and small vessel ischemic disease.
== END 2023-06-05 12:32 | disposition home or self-care (01) ==
LOC: RAD 12:32
PROVIDERS: PCP Nurse Practitioner Family; Visit Provider Specialist
DX: S06.9XAA Unspecified intracranial injury with loss of consciousness status unknown, initial encounter (principal); G93.1 Anoxic brain damage, not elsewhere classified; F02.80 Dementia in other diseases classified elsewhere, unspecified severity, without behavioral disturbance, psychotic disturbance, mood disturbance, and anxiety; Y99.9 Unspecified external cause status
CPT/HCPCS: 70551

== ENCOUNTER → 2023-06-12 16:22 | Outpatient (BNVA) | payer MEDICARE, SELFPAY | PROVIDERS: PCP Nurse Practitioner Family; Visit Provider Nurse Practitioner Family | DX: R07.9 Chest pain, unspecified (principal) | CPT/HCPCS: 93005 ==

== ENCOUNTER → 2023-06-18 16:39 | Outpatient (BNVA) | payer MEDICARE, SELFPAY | PROVIDERS: PCP Nurse Practitioner Family; Visit Provider Nurse Practitioner Family | DX: Z79.899 Other long term (current) drug therapy (principal); N39.0 Urinary tract infection, site not specified | CPT/HCPCS: 80053; 85025 ==

== ENCOUNTER → 2023-07-17 11:05 | Outpatient (BNVA) | payer MEDICARE, SELFPAY | PROVIDERS: PCP Nurse Practitioner Family; Visit Provider Nurse Practitioner Family | DX: N39.0 Urinary tract infection, site not specified (principal); Z79.899 Other long term (current) drug therapy | CPT/HCPCS: 81000; 87086; 87106 ==